=== PATIENT | male | born 1950 | race Caucasian/White ===

== ENCOUNTER 2017-07-26 07:45 | Inpatient (IN) | payer MEDICARE, OTHER ==
[2017-07-26] VITALS (10 sets, daily range): BP systolic 100–137; BP diastolic 52–73; PULSE 60–73; TEMP 97.6–98.3
[~2017-07-26] VITALS: Ht 175.3 cm; Wt 133.9 kg
[~2017-07-26 07:45] MED LIST: ASPIRIN 32325 MG/TAB PO; BP MED; CELEXA10 MG PO; CIPRO500 MG PO; FLOXIN OTIC DROP5 ML OT; GLUCOPHAGE850 MG/TAB PO; GLUCOTROL10 MG PO; HCTZ12.5TAB PO; METFORMIN500 MG PO; NORCO 325 MG-51 TAB PO; OMNICEF 300MG300 MG PO; ZOCOR 20MG20 MG PO; [UNRECOGNIZED DRUG - REMARK]
[2017-07-26 08:20] LABS: BASO % 0.3 % (0.0-2.0); EOS # 0.3 (0.0-0.7); EOS % 2.3 % (0-4.0); GRAN # 7.4 (1.4-6.5); HEMATOCRIT 42.4 % (42.0-52.0); HEMOGLOBIN 13.8 g/dl (13.5-18.0); LYMPH # 2.3 (1.2-3.4); LYMPH % 21.8 % (20.0-51.0); MEAN CELL VOLUME 91 fl (80.0-100.0); MEAN CORPUSCULAR HEMOGLOBIN 30 pg (27.0-31.0); MEAN CORPUSCULAR HGB CONC 33 g/dl (33.0-37.0); MEAN PLATELET VOLUME 9.3 fl (7.4-10.4); MONO # 0.7 (0.1-0.6); MONO % 6.2 % (1.7-9.3); PLATELET COUNT 340 K/mm3 (130-400); RED BLOOD COUNT 4.68 M/mm3 (4.20-5.60); REDCELL DISTRIBUTION WIDTH-CV 14.8 % (11.5-14.5)
[2017-07-26 08:30] LABS: ALBUMIN 3.7 gm/dL (3.5-5.0); BILIRUBIN,TOTAL 0.5 mg/dL (0.0-1.0); CALCIUM 9.2 mg/dL (8.4-10.2); CREATININE, serum 1.09 mg/dL (0.66-1.25); POTASSIUM 4.2 mmol/L (3.4-5.0); TOTAL PROTEIN 7.8 gm/dL (6.4-8.2)
[2017-07-26 08:32] LABS: PROTHROMBIN TIME 11.5 SECONDS (9.7-12.8)
[2017-07-26 08:35] LABS: PARTIAL THROMBOPLASTIN TIME 35.1 SECONDS (26.0-37.0)
[2017-07-26 13:37] LABS: BASO % 0.3 % (0.0-2.0); EOS # 0.1 (0.0-0.7); EOS % 0.9 % (0-4.0); GRAN # 9.6 (1.4-6.5); GRAN % 78.1 % (42.2-75.2); LYMPH # 1.9 (1.2-3.4); LYMPH % 15.6 % (20.0-51.0); MEAN CELL VOLUME 91 fl (80.0-100.0); MEAN CORPUSCULAR HGB CONC 33 g/dl (33.0-37.0); MEAN PLATELET VOLUME 9.3 fl (7.4-10.4); MONO # 0.6 (0.1-0.6); MONO % 4.8 % (1.7-9.3); PLATELET COUNT 298 K/mm3 (130-400); RED BLOOD COUNT 3.89 M/mm3 (4.20-5.60); REDCELL DISTRIBUTION WIDTH-CV 14.7 % (11.5-14.5)
[2017-07-26 13:38] LABS: HEMATOCRIT 35.2 % (42.0-52.0); HEMOGLOBIN 11.5 g/dl (13.5-18.0); MEAN CORPUSCULAR HEMOGLOBIN 30 pg (27.0-31.0)
[2017-07-27 04:49] VITALS: BP 130/58; PULSE 82; TEMP 97.2
[2017-07-27 06:43] LABS: BASO % 0.2 % (0.0-2.0); EOS # 0.2 (0.0-0.7); EOS % 2.4 % (0-4.0); GRAN # 6.2 (1.4-6.5); LYMPH # 2.5 (1.2-3.4); LYMPH % 26.4 % (20.0-51.0); MEAN CELL VOLUME 90 fl (80.0-100.0); MEAN CORPUSCULAR HGB CONC 33 g/dl (33.0-37.0); MEAN PLATELET VOLUME 9.4 fl (7.4-10.4); MONO # 0.5 (0.1-0.6); MONO % 5.6 % (1.7-9.3); PLATELET COUNT 249 K/mm3 (130-400); RED BLOOD COUNT 3.22 M/mm3 (4.20-5.60); REDCELL DISTRIBUTION WIDTH-CV 14.6 % (11.5-14.5)
[2017-07-27 06:45] LABS: HEMATOCRIT 28.9 % (42.0-52.0); HEMOGLOBIN 9.4 g/dl (13.5-18.0); MEAN CORPUSCULAR HEMOGLOBIN 29 pg (27.0-31.0)
[2017-07-27 06:55] LABS: CALCIUM 7.7 mg/dL (8.4-10.2); CREATININE, serum 0.85 mg/dL (0.66-1.25); POTASSIUM 3.6 mmol/L (3.4-5.0)
[2017-07-27 07:01] VITALS: BP 114/62; PULSE 71; TEMP 98.8
[2017-07-27 11:11] VITALS: BP 120/55; PULSE 65; TEMP 98.2
== END 2017-07-27 14:29 | disposition home or self-care (01) | DRG 378 ==
LOC: COL.ER 07:45 → JCC 09:11 → MEDICAL 09:11 → JCC 14:52 → MEDICAL 15:31
PROVIDERS: Emergency Medicine; Internal Medicine Gastroenterology; Physician Assistant
PROC: 0DJ08ZZ Inspection of Upper Intestinal Tract, Via Natural or Artificial Opening Endoscopic (ICD-10-PCS; principal; 2017-07-26 15:00)
PROC: 0DJD8ZZ Inspection of Lower Intestinal Tract, Via Natural or Artificial Opening Endoscopic (ICD-10-PCS; 2017-07-26 15:00)
DX: K57.31 Diverticulosis of large intestine without perforation or abscess with bleeding (principal); Z68.41 Body mass index [BMI] 40.0-44.9, adult; D50.0 Iron deficiency anemia secondary to blood loss (chronic); I10 Essential (primary) hypertension; E11.9 Type 2 diabetes mellitus without complications; I69.398 Other sequelae of cerebral infarction; H53.8 Other visual disturbances; Z87.891 Personal history of nicotine dependence; E66.01 Morbid (severe) obesity due to excess calories
CPT/HCPCS: 99223-AI; C9113; J2250; J3010; J7030

== ENCOUNTER 2022-11-08 06:31 | Day surgery (SDC) | payer MEDICARE, OTHER ==
[~2022-11-08] VITALS: Ht 174 cm; Wt 159.1 kg
[2022-11-08 08:01] VITALS: BP 154/69; PULSE 74; TEMP 97
[2022-11-08] MEDS ORDERED: CELEXA 20MG20 MG/TAB PO (08:05)
[2022-11-08] MEDS ORDERED: ACTOS 15MG TAB15 MG PO (08:06)
[2022-11-08] MEDS ORDERED: MOBIC15 MG PO (08:07)
[2022-11-08] MEDS ORDERED: BETIMOL 0.5% OPH5 ML OU (08:08)
[2022-11-08] MEDS ORDERED: ALPHAGAN OPHTH D5 ML OU (08:09)
[2022-11-08] MEDS ORDERED: XALATAN EYE DROPS OU (08:10)
[2022-11-08 09:40] VITALS: BP 119/61; PULSE 72; TEMP 97
[2022-11-08 09:49] VITALS: TEMP 97.8
[2022-11-08 09:55] VITALS: BP 118/53; PULSE 78
[2022-11-08 10:10] VITALS: BP 122/48; PULSE 72
[2022-11-08 10:25] VITALS: BP 117/52; PULSE 76
--- NOTE | 2022-11-08 10:40 | NUR ---
0940 RETURNS TO ROOM 8 PER CART. AWAKE, ALERT. RESP UNLABORED. HOB ELEVATED 45 DEGREES. VITAL SIGNS OBTAINED. CHAN CATHETER PATENT AT PERINEAL SIGHT. URINE LIGHT YELLOW. DENIES DISCOMFOT. CALL LIGHT AT SIDE. IN ROOM 0955 TOLERATES PO SODA WITHOUT NAUSEA 1010 DISCHARGE INSTRUCTIONS REVIEWED, INCLUDING DEMONSTRATION ON EMPTYING CHAN CATHETER BAG. UNSURE IF WILL USE, LEG BAG AND INSTRUCITONS FOR ATTACHING PROVIDED FOR PATIENT TO TAKE HOME 1025 SITS ON EDGE OF BED. DRESSES WITH ASSIST FROM
== END 2022-11-08 10:40 | disposition home or self-care (01) ==
LOC: SDCO 06:31
DX: N99.113 Postprocedural anterior bulbous urethral stricture, male (principal); R35.0 Frequency of micturition; R39.15 Urgency of urination; Z87.891 Personal history of nicotine dependence; Z87.440 Personal history of urinary (tract) infections; Z99.81 Dependence on supplemental oxygen
CPT/HCPCS: C1769; C1894; J0690; J1100; J2405; J2704; J3010; J7120

== ENCOUNTER 2023-02-10 09:40 | Day surgery (SDC) | payer MEDICARE, OTHER ==
[~2023-02-10] VITALS: Ht 172.7 cm; Wt 156.0 kg
[~2023-02-10 09:40] MED LIST changes: +ACTOS 15MG TAB15 MG PO; +ALPHAGAN OPHTH D5 ML OU; +BETIMOL 0.5% OPH5 ML OU; +CELEXA 20MG20 MG/TAB PO; +LR 1,000 ML IV SCH; +MOBIC15 MG PO; +Ondansetron 4 MG/2 ML VIAL IV PRN; +XALATAN EYE DROPS OU
[2023-02-10 11:17] VITALS: BP 137/75; PULSE 69; TEMP 97.4
[2023-02-10] MEDS ORDERED: FLOMAX 0.40.4 MG/CAP PO (11:30)
[2023-02-10] MEDS ORDERED: TIMOLOL MALEATE5 M1 OP (11:31)
[2023-02-10] MEDS ORDERED: Lidocaine PF 2% (20 MG/ML) 5 ML VIAL ONE (11:51)
[2023-02-10] MEDS ORDERED: Glycopyrrolate 0.2 MG/ML 1 ML VIAL ONE (11:51)
[2023-02-10 12:45] VITALS: BP 137/75; PULSE 70; TEMP 97.4
[2023-02-10 13:00] VITALS: BP 132/80; PULSE 68
[2023-02-10 13:15] VITALS: BP 130/75; PULSE 70
--- NOTE | 2023-02-10 13:30 | NUR ---
1245 RETURNS TO ROOM 3 PER CART. AWAKE, ALERT. RESP UNLABORED. AMBULATES TO RECLINER WITH STANDBY ASSIST. DENIES NAUSEA, ABD/CHEST PAIN OR DYSPHAGIA. VITAL SIGNS OBTAINED. CALL LIGHT AT SIDE. SIGNIFICANT OTHER IN ROOM 1255 TOLERATES PO JUICE WITHOUT NAUSEA. SWALLOWS WITHOUT DIFFICULTY. DISCHARGE INSTRUCTIONS REVIEWED. PATIENT VERBALIZES UNDERSTANDING. COPY PROVIDED IN DISCHARGE FOLDER. 1036 DR. VILLEDA HERE TO VISIT WITH PATIENT 1320 DRESSES WITH STANDBY ASSIST OF SIGNIFICANT OTHER
== END 2023-02-10 13:34 | disposition home or self-care (01) ==
LOC: SDCO 09:40
DX: K57.30 Diverticulosis of large intestine without perforation or abscess without bleeding (principal); K44.9 Diaphragmatic hernia without obstruction or gangrene; D50.0 Iron deficiency anemia secondary to blood loss (chronic); Z86.010 Personal history of colon polyps
CPT/HCPCS: J2704; J7120

== ENCOUNTER 2023-08-10 15:07 | Emergency (ER) | payer MEDICARE, OTHER ==
[~2023-08-10] VITALS: Ht 172.7 cm; Wt 140.9 kg
[~2023-08-10 15:07] MED LIST changes: +FLOMAX 0.40.4 MG/CAP PO; -LR 1,000 ML IV SCH; -Ondansetron 4 MG/2 ML VIAL IV PRN; +TIMOLOL MALEATE5 M1 OP
[2023-08-10 15:15] VITALS: TEMP 97.9
[2023-08-10 17:15] VITALS: BP 131/74; PULSE 60
== END 2023-08-10 17:15 | disposition home or self-care (01) ==
LOC: COL.ER 15:07
DX: S00.03XA Contusion of scalp, initial encounter (principal); W18.30XA Fall on same level, unspecified, initial encounter; W22.8XXA Striking against or struck by other objects, initial encounter; Y93.01 Activity, walking, marching and hiking; Y92.254 Theater (live) as the place of occurrence of the external cause